=== PATIENT | male | born 1960 | race Caucasian/White ===

== ENCOUNTER 2016-09-28 11:59 | Emergency (ER) | payer MEDICARE, OTHER ==
[~2016-09-28 11:59] MED LIST: ADVAIR 250-501 EACH INH; ALBUTEROL HFA6.7 GM INH; COMBIVENT1 PUFF INH; HYDROCHLOROTHIA25 MG PO; LEVAQUIN750 MG PO; NICOTINE TRANSD21 MG TOP; PRINIVIL10 MG PO; SYNTHROID175 MCG PO; VITAMIN B-121000 MCG PO
== END 2016-09-28 14:45 | disposition home or self-care (01) ==
LOC: ER 11:59
DX: I83.91 Asymptomatic varicose veins of right lower extremity (principal); F41.9 Anxiety disorder, unspecified; E03.9 Hypothyroidism, unspecified; I10 Essential (primary) hypertension; E78.5 Hyperlipidemia, unspecified; F17.200 Nicotine dependence, unspecified, uncomplicated; Z79.899 Other long term (current) drug therapy